=== PATIENT | female | born 1990 | race Caucasian/White ===

== ENCOUNTER 2017-02-04 12:40 | Observation (INO) ==
[2017-02-04 13:17] LABS: Bilirubin,Urine Negative (Negative); Blood,Urine Negative (Negative); Clarity,Urine Clear (Clear); Color,Urine Yellow (Yellow); Glucose,Urine (UA) Normal (Normal); Ketones,Urine Negative (Negative); Leukocyte Esterase,Urine Negative (Negative); Nitrite,Urine Negative (Negative); Protein,Urine Negative (Neg-Trace); Specific Gravity,Urine 1.021 (1.010-1.025); Urobilinogen,Urine Normal (Normal)
[2017-02-04 13:18] LABS: Amphetamine Screen,Urine Negative ng/mL (Cutoff=1000); Barbiturate Screen,Urine Negative ng/mL (Cutoff=200); Benzodiazepines Screen,Urine Positive ng/mL (Cutoff=200); Cannabinoid Screen,Urine Positive ng/mL (Cutoff = 50); Cocaine Screen,Urine Negative ng/mL (Cutoff= 300); Opiate Screen,Urine Negative ng/mL (Cutoff=300); Phencyclidine Screen,Urine Negative ng/mL (Cutoff=25)
[2017-02-04 13:43] LABS: Basophils % 0.2 %; Eosinophils # 0.1 K/mcL (0.0-0.6); Eosinophils % 0.6 %; Hematocrit 43.4 % (35.3-44.9); Immature Granulocytes % 0.2 % (0-4); Lymphocytes # 1.6 K/mcL (0.6-4.6); Lymphocytes % 19.3 %; Mean Corpuscular HGB Conc 34.6 g/dL (31.6-35.5); Mean Corpuscular Hemoglobin 29.8 pg (28.0-33.3); Mean Corpuscular Volume 86.1 fL (83.0-100.0); Mean Platelet Volume 9.6 fL (9.4-12.4); Monocytes # 0.5 K/mcL (0.0-1.3); Monocytes % 6.1 %; Neutrophils # 5.9 K/mcL (1.6-8.9); Platelet Count 164 K/mcL (140-400); Red Blood Count 5.04 M/mcL (3.82-4.97); Red Cell Distribution Width 13.5 % (11.5-14.5); Segmented Neutrophils % 73.6 %
[2017-02-04 13:46] LABS: BUN/Creatinine Ratio 12 (6-26); Blood Urea Nitrogen 10 mg/dL (7-20); Calcium 9.2 mg/dL (8.6-10.8); Carbon Dioxide 22 mEq/L (19-29); Chloride 106 mEq/L (98-109); Glucose 89 mg/dL (70-99); Osmolality,Calculated 285 (280-300); Potassium 4.2 mEq/L (3.5-4.5); Sodium 138 mEq/L (136-145); eGFR For African Americans > 60 (> 60); eGFR For Non-African Americans > 60 (> 60)
[2017-02-04 13:50] LABS: Acetaminophen < 1.0 mcg/mL (10-30); Ethanol < 10 mg/dL (0-10); Salicylate < 5.0 mg/dL (15-30)
--- NOTE | 2017-02-04 14:01 | Emergency Department Note ---
Disposition Clinical Impression: Suicidal ideation Disposition: Admitted As Inpatient Condition: Fair Referrals: NONE,PCP [Primary Care Provider] - Forms: ED Satisfaction Letter Time of Disposition: 17:30 Psych HPI - General Chief Complaint: ED Psychiatric Symptoms Stated Complaint: SI Time Seen by Provider: 02/04/17 14:01 Source: patient, family Nursing Notes Reviewed: Yes Vital Signs Reviewed: Yes - History of Present Illness HPI Narrative: 26-year-old female history of depression presents complaining of suicidal ideation, patient states that she has a history of anxiety and depression, she states that she has had multiple recent stressors in her life, she is having suicidal thoughts but denies suicidal intent or plan, she also has no homicidal thoughts, no auditory or visual hallucination she denies chest pain shortness of breath fever or any acute illness. Pt complaint: suicidal ideation Onset (ago): day(s) Duration: changing over time History of similar episodes: No Improves with: none Worsens with: none Associated Psychiatric Symptoms: depression, suicidal ideation Traumatic symptoms: denies traumatic injury Self harm or harm to others: admits thoughts of self harm - Related Data Home Medications Medication Instructions Recorded Confirmed ALPRAZolam [Xanax 0.5 MG Tablet] 0.5 mg PO TID 02/04/17 02/04/17 Cholecalciferol (Vitamin D3) 50,000 unit PO QWEEK 02/04/17 02/04/17 [Vitamin D] Ferrous Sulfate [Iron] 325 mg PO DAILY 02/04/17 02/04/17 Loratadine [Claritin] 10 mg PO DAILY 02/04/17 02/04/17 Lurasidone [Latuda] 40 mg PO DAILY 02/04/17 02/04/17 Venlafaxine XR (24 HR) [Effexor XR] 37.5 mg PO DAILY 02/04/17 02/04/17 metFORMIN [Glucophage] 500 mg PO TID 02/04/17 02/04/17 Allergies Allergy/AdvReac Type Severity Reaction Status Date / Time No Known Allergies Allergy Verified 02/04/17 18:06 All systems ED: reviewed and negative except as stated. Review of Systems: As Per HPI Constitutional: Denies: fever, chills ENT ED: Denies: ear pain Cardiovascular: Denies: chest pain Respiratory: Denies: cough, dyspnea Gastrointestinal: Denies: abdominal pain Genitourinary: Denies: urgency Musculoskeletal: Denies: back pain, neck pain Integumentary: Denies: rash Psychiatric: Reports: as per HPI, depression, suicidal thoughts. Denies: homicidal thoughts, auditory hallucinations, visual hallucinations Past Medical History - Past Medical History Attestation: Yes The following information was validated with the patient. Source: patient Medical history: Reports: no medical history, other Psychiatric history: Reports: anxiety, depression VP RESEARCH history: Reports: no VP RESEARCH history - Social History Smoking Status: Never smoker Smokeless Tobacco Status: No Alcohol use: Reports: none Drug use: Reports: marijuana Physical Exam Constitutional: NAD, vital signs reviewed and wnl Eyes: PERRLA, sclera anicteric ENT & Mouth: MMM Neck: normal inspection, neck is supple Resp: CTA bilaterally, no resp distress CV: RRR, no m/g/r GI: normal inspection, soft, mild tenderness to palpation diffusely no guarding or rigidity Neuro: A&O3, CNII-XII grossly intact, GONZALEZ Psych: +SI, anxiety Skin: on limited exam, skin intact with no rashes or lesions - General Limitations: no limitations General appearance: alert, in no apparent distress Course Course Narrative: 26-year-old female with anxiety depression and suicidal ideation, the patient was medically cleared after evaluation by one A was determined that she met criteria for suicidal ideation, consult was written, the patient was admitted to the psychiatric unit Ia in stable condition. Vital Signs Temperature 98.1 F 02/04/17 12:49 Pulse Rate 94 02/04/17 12:49 Respiratory Rate 18 02/04/17 12:49 Blood Pressure 143/93 02/04/17 12:49 O2 Sat by Pulse Oximetry 100 02/04/17 12:49 Temperature 98.2 F 02/04/17 13:42 Pulse Rate 81 02/04/17 13:42 Respiratory Rate 20 02/04/17 13:42 Blood Pressure 159/115 02/04/17 13:42 O2 Sat by Pulse Oximetry 98 02/04/17 13:42 Oxygen Delivery Oxygen Delivery Room Air Psych - Differential Diagnosis Likely: suicidal ideation, depression - Lab Data Result diagrams: 02/04/17 13:20 02/04/17 13:20 Lab Results 02/04/17 02/04/17 02/04/17 Range/Units 12:55 12:55 13:20 WBC 8.1 (4.3-11.1) K/mcL RBC 5.04 H (3.82-4.97) M/mcL Hgb 15.0 (11.5-15.4) g/dL Hct 43.4 (35.3-44.9) % MCV 86.1 (83.0-100.0) fL MCH 29.8 (28.0-33.3) pg MCHC 34.6 (31.6-35.5) g/dL RDW 13.5 (11.5-14.5) % Plt Count 164 (140-400) K/mcL MPV 9.6 (9.4-12.4) fL Immature Gran % 0.2 (0-4) % Seg Neutrophils % 73.6 % Lymphocytes % 19.3 % Monocytes % 6.1 % Eosinophils % 0.6 % Basophils % 0.2 % Neutrophils # 5.9 (1.6-8.9) K/mcL Lymphocytes # 1.6 (0.6-4.6) K/mcL Monocytes # 0.5 (0.0-1.3) K/mcL Eosinophils # 0.1 (0.0-0.6) K/mcL Basophils # 0.0 (0.0-0.2) K/mcL Sodium (136-145) mEq/L Potassium (3.5-4.5) mEq/L Chloride (98-109) mEq/L Carbon Dioxide (19-29) mEq/L BUN (7-20) mg/dL Creatinine (0.57-1.11) mg/dL Est GFR ( Amer) (> 60) Est GFR (Non-Af Amer) (> 60) BUN/Creatinine Ratio (6-26) Glucose (70-99) mg/dL Calculated Osmolality (280-300) Calcium (8.6-10.8) mg/dL Urine Color Yellow (Yellow) Urine Clarity Clear (Clear) Urine pH 6.0 (5.0-8.0) pH Units Ur Specific [place] 1.021 (1.010-1.025) Urine Protein Negative (Neg-Trace) mg/dL Urine Glucose (UA) Normal (Normal) mg/dL Urine Ketones Negative (Negative) mg/dL Urine Blood Negative (Negative) Urine Nitrite Negative (Negative) Urine Bilirubin Negative (Negative) Urine Urobilinogen Normal (Normal) mg/dL Ur Leukocyte Esterase Negative (Negative) Ur Culture Indicated? (NO) Urine Test (Negative) Salicylates (15-30) mg/dL Urine Opiates Screen Negative (Owpyao=454) ng/mL Acetaminophen (10-30) mcg/mL Ur Barbiturates Screen Negative (Rjbhef=873) ng/mL Ur Phencyclidine Scrn Negative (Cutoff=25) ng/mL Ur Amphetamines Screen Negative (Ifjuqw=1066) ng/mL U Benzodiazepines Scrn Positive H (Lavpet=986) ng/mL Urine Cocaine Screen Negative (Cutoff= 300) ng/mL U Marijuana (THC) Screen Positive H (Cutoff = 50) ng/mL Ethyl Alcohol (0-10) mg/dL 02/04/17 02/04/17 02/04/17 Range/Units 13:20 14:30 14:30 WBC (4.3-11.1) K/mcL RBC (3.82-4.97) M/mcL Hgb (11.5-15.4) g/dL Hct (35.3-44.9) % MCV (83.0-100.0) fL MCH (28.0-33.3) pg MCHC (31.6-35.5) g/dL RDW (11.5-14.5) % Plt Count (140-400) K/mcL MPV (9.4-12.4) fL Immature Gran % (0-4) % Seg Neutrophils % % Lymphocytes % % Monocytes % % Eosinophils % % Basophils % % Neutrophils # (1.6-8.9) K/mcL Lymphocytes # (0.6-4.6) K/mcL Monocytes # (0.0-1.3) K/mcL Eosinophils # (0.0-0.6) K/mcL Basophils # (0.0-0.2) K/mcL Sodium 138 (136-145) mEq/L Potassium 4.2 (3.5-4.5) mEq/L Chloride 106 (98-109) mEq/L Carbon Dioxide 22 (19-29) mEq/L BUN 10 (7-20) mg/dL Creatinine 0.84 (0.57-1.11) mg/dL Est GFR ( Amer) > 60 (> 60) Est GFR (Non-Af Amer) > 60 (> 60) BUN/Creatinine Ratio 12 (6-26) Glucose 89 (70-99) mg/dL Calculated Osmolality 285 (280-300) Calcium 9.2 (8.6-10.8) mg/dL Urine Color Yellow (Yellow) Urine Clarity Clear (Clear) Urine pH 6.0 (5.0-8.0) pH Units Ur Specific [place] 1.019 (1.010-1.025) Urine Protein Negative (Neg-Trace) mg/dL Urine Glucose (UA) Normal (Normal) mg/dL Urine Ketones Negative (Negative) mg/dL Urine Blood Negative (Negative) Urine Nitrite Negative (Negative) Urine Bilirubin Negative (Negative) Urine Urobilinogen Normal (Normal) mg/dL Ur Leukocyte Esterase Negative (Negative) Ur Culture Indicated? NO (NO) Urine Test Negative (Negative) Salicylates < 5.0 L (15-30) mg/dL Urine Opiates Screen (Otsvqc=617) ng/mL Acetaminophen < 1.0 L (10-30) mcg/mL Ur Barbiturates Screen (Qjghjz=302) ng/mL Ur Phencyclidine Scrn (Cutoff=25) ng/mL Ur Amphetamines Screen (Yznnur=6815) ng/mL U Benzodiazepines Scrn (Ojgmgc=197) ng/mL Urine Cocaine Screen (Cutoff= 300) ng/mL U Marijuana (THC) Screen (Cutoff = 50) ng/mL Ethyl Alcohol < 10 (0-10) mg/dL Psychiatric Medical Clearance - Medical Clearance Checklist Medical History: Abdominal pain (Inactive) Nausea & vomiting (Inactive) No Social History Section defined Current Vitals: Last Vital Signs Temp 98.2 F 02/04/17 13:42 Pulse 81 02/04/17 13:42 Resp 20 02/04/17 13:42 BP 159/115 02/04/17 13:42 Pulse Ox 98 02/04/17 13:42 Psychiatric Lab Panel: Drug Levels and Toxicity 02/04/17 02/04/17 12:55 13:20 Urine Opiates Screen Negative Acetaminophen < 1.0 L Ur Barbiturates Screen Negative Ur Phencyclidine Scrn Negative Ur Amphetamines Screen Negative U Benzodiazepines Scrn Positive H Urine Cocaine Screen Negative U Marijuana (THC) Screen Positive H Ethyl Alcohol < 10 Abnormal Labs: Abnormal lab results RBC 5.04 M/mcL (3.82-4.97) H 02/04/17 13:20 Salicylates < 5.0 mg/dL (15-30) L 02/04/17 13:20 Acetaminophen < 1.0 mcg/mL (10-30) L 02/04/17 13:20 U Benzodiazepines Scrn Positive ng/mL (Zxahlc=099) H 02/04/17 12:55 U Marijuana (THC) Screen Positive ng/mL (Cutoff = 50) H 02/04/17 12:55 Statement of Medical Clearance: I have evaluated the patient, reviewed diagnostic information, and certify that the patient's medical condition is sufficiently stable that transfer to the psychiatric unit does not pose a significant risk of deterioration.
--- NOTE | 2017-02-04 14:19 | Emergency Department Note ---
START Narrative - START START: I examined this patient and my medical decision-making was reviewed with the Resident Physician. I agree with the documented findings, disposition and treatment plan as described except to the extent set forth below. ED attending note: Patient seen with emergency medicine resident Dr. Bazan. We independently evaluated the patient and had [id number] contact with the patient. Please see a copy of his note for details of the history and physical, evaluation, management and disposition of this emergency Department patient. Briefly: A 26-year-old female history of bipolar disorder and depression presents with suicidal ideation but no discrete plan. Patient presented with the mother. Patient is undergoing psychiatric consultation and counseling on an outpatient basis. Patient has had no prior inpatient psychiatric admissions. Patient's physical examination was otherwise benign. Patient's screening labs including urine tox screen essentially normal bleeding for urine . Mental health be consulted for further treatment management and disposition.
[2017-02-04 14:46] LABS: Bilirubin,Urine Negative (Negative); Blood,Urine Negative (Negative); Clarity,Urine Clear (Clear); Color,Urine Yellow (Yellow); Glucose,Urine (UA) Normal (Normal); Ketones,Urine Negative (Negative); Leukocyte Esterase,Urine Negative (Negative); Nitrite,Urine Negative (Negative); Protein,Urine Negative (Neg-Trace); Specific Gravity,Urine 1.019 (1.010-1.025); Urobilinogen,Urine Normal (Normal)
[2017-02-04] MEDS ORDERED: Haloperidol Lactate 5 MG/ML VIAL IM PRN (18:20)
[2017-02-04] MEDS ORDERED: *HR* LORazepam 2 MG/ML VIAL IM PRN (18:20)
[2017-02-04] MEDS ORDERED: *HR* LORazepam 1 MG TABLET PO PRN (18:20)
[2017-02-04] MEDS ORDERED: MOM Conc 10 ML UD.LIQ PO PRN (18:20)
[2017-02-04] MEDS ORDERED: Mag Hydrox/Al Hydrox/Simeth 30 ML UDC PO PRN (18:20)
[2017-02-04] MEDS: hydrOXYzine pamoate 25 MG CAPSULE PO PRN (20:11)
[2017-02-04] MEDS: *HR* Metformin 500 MG TABLET PO SCH (20:11)
[2017-02-04] MEDS: traZODone 50 MG TABLET PO PRN (20:12)
[2017-02-04] MEDS: Acetaminophen 325 MG TABLET PO PRN (20:19)
[2017-02-05] MEDS ORDERED: Venlafaxine XR (24 HR) 37.5 MG CAP.ER.24H PO SCH (09:00)
[2017-02-05] MEDS: Cholecalciferol (D-3) 1,000 UNIT TABLET PO SCH (09:18)
[2017-02-05] MEDS: *HR* Metformin 500 MG TABLET PO SCH ×3 (09:19→21:44)
[2017-02-05] MEDS ORDERED: Venlafaxine XR (24 HR) 75 MG CAP.ER.24H PO SCH (10:12)
--- NOTE | 2017-02-05 10:25 | Discharge Summary ---
Date of Encounter: 02/06/17 Time of Encounter: 10:19 History of Present Illness Chief complaint: Depression and suicidal ideation Admitted From: Emergency Dept History of Present Illness: Ms. Walton is a 26 year old female admitted from the emergency department on observation status to evaluate increasing depression, anxiety and suicidal ideation. Patient reports having hypersomnia, frequent anxiety and increasing depression. Patient medication changes including increasing Latuda to 60 mg daily, adding Effexor 37.5 and changing Klonopin to alprazolam. Patient did not tolerate the medication changes and would not have outpatient appointments soon. She had no previous hospitalization, she reported having mood swings, she works and goes to school and feels stressed out. UDS was positive for THC and benzodiazepine. Patient denied any past suicide attempts and has been receiving mental health's treatment for the last 2 years. Past Med Surg Social Fam HX - Past Medical History Medical history: no medical history, other - Past Psychiatric History Psychiatric history: Reports: anxiety, depression. Denies: prior suicide attempt, previous psychiatric hospitalization - Social History Smoking Status: Never smoker Smokeless Tobacco Status: No Alcohol use: none Drug use: marijuana - Family History Mother Adopted: [place]: Eneida Age: 48 Family Member Ethnicity: Non- Living Status: Still Living Hx Family Cardiac Disorders: No Hx Family Respiratory Disorders: No Hx Family Cancer: No Hx Family GI Disorders: Yes (Diverticulitis) Hx Family Genitourinary Disorders: No Hx Family Endocrine Disorder: No Hx Family Musculoskeletal Disorders: No Hx Family Neuromuscular Disorders: No Hx Family Neurologic Disorders: No Hx Family HEENT Disorders: No Hx Family Autoimmune Disorders: Yes (oldest daughter) Hx Family Reproductive Disorders: Yes (POCS and endometriosis) Hx Family Psychosocial Disorders: No Hx Family Medical Disorders: No Medications - Discharge Medications Prescriptions: Gabapentin [Neurontin] 100 mg PO BID #60 capsule Propranolol [Inderal] 20 mg PO BID PRN #60 tablet PRN Reason: Anxiety Venlafaxine XR (24 HR) [Effexor XR] 75 mg PO DAILY #30 cap.er.24h ALPRAZolam [Xanax 0.5 MG Tablet] 0.5 mg PO TID 02/04/17 [History] Cholecalciferol (Vitamin D3) [Vitamin D3] 50,000 unit PO QWEEK 02/04/17 [History ] Ferrous Sulfate [Iron] 325 mg PO DAILY 02/04/17 [History] Loratadine [Claritin] 10 mg PO DAILY 02/04/17 [History] metFORMIN [Glucophage] 500 mg PO TID 02/04/17 [History] Gabapentin [Neurontin] 100 mg PO BID #60 capsule 02/06/17 [Rx] Propranolol [Inderal] 20 mg PO BID PRN #60 tablet 02/06/17 [Rx] Venlafaxine XR (24 HR) [Effexor XR] 75 mg PO DAILY #30 cap.er.24h 02/06/17 [Rx] 3 Allergy/AdvReac Type Severity Reaction Status Date / Time No Known Allergies Allergy Verified 02/04/17 18:06 Review of Systems Psychiatric: Reports: depression, anxiety, abnormal sleep pattern, suicidal ideation, irritability, mood swings Mental Status Exam - Mental Status Exam Patient orientation: Yes Person, Yes Time, Yes Place Level of alertness: Alert Patient appearance: Appropriate, Well Groomed, Obese Behavior: calm, cooperative, anxious Psychomotor activity: Normal Eye contact: Maintains Eye Contact Mood description: Euthymic/stable, Anxious Affect description: congruent with mood, full range Speech pattern: Normal rate, Normal rhythm, Normal tone Speech Volume: Normal Thought process: Linear, Goal Oriented Thought Content: No Suicidal ideation, No Homicidal ideation, No Overt delusions Perceptual Disturbances: No Auditory hallucinations, No Visual hallucinations Judgment: Good Insight: Partial Results - Vital Signs Vital signs: Temp Pulse Resp BP Pulse Ox 98 F 67 16 124/87 97 02/05/17 08:11 02/05/17 08:11 02/05/17 08:11 02/05/17 08:11 02/04/17 17:57 - Labs Labs: Laboratory Last Values WBC 8.1 K/mcL (4.3-11.1) 02/04/17 13:20 RBC 5.04 M/mcL (3.82-4.97) H 02/04/17 13:20 Hgb 15.0 g/dL (11.5-15.4) 02/04/17 13:20 Hct 43.4 % (35.3-44.9) 02/04/17 13:20 MCV 86.1 fL (83.0-100.0) 02/04/17 13:20 MCH 29.8 pg (28.0-33.3) 02/04/17 13:20 MCHC 34.6 g/dL (31.6-35.5) 02/04/17 13:20 RDW 13.5 % (11.5-14.5) 02/04/17 13:20 Plt Count 164 K/mcL (140-400) 02/04/17 13:20 MPV 9.6 fL (9.4-12.4) 02/04/17 13:20 Immature Gran % 0.2 % (0-4) 02/04/17 13:20 Seg Neutrophils % 73.6 % 02/04/17 13:20 Lymphocytes % 19.3 % 02/04/17 13:20 Monocytes % 6.1 % 02/04/17 13:20 Eosinophils % 0.6 % 02/04/17 13:20 Basophils % 0.2 % 02/04/17 13:20 Neutrophils # 5.9 K/mcL (1.6-8.9) 02/04/17 13:20 Lymphocytes # 1.6 K/mcL (0.6-4.6) 02/04/17 13:20 Monocytes # 0.5 K/mcL (0.0-1.3) 02/04/17 13:20 Eosinophils # 0.1 K/mcL (0.0-0.6) 02/04/17 13:20 Basophils # 0.0 K/mcL (0.0-0.2) 02/04/17 13:20 Sodium 138 mEq/L (136-145) 02/04/17 13:20 Potassium 4.2 mEq/L (3.5-4.5) 02/04/17 13:20 Chloride 106 mEq/L (98-109) 02/04/17 13:20 Carbon Dioxide 22 mEq/L (19-29) 02/04/17 13:20 BUN 10 mg/dL (7-20) 02/04/17 13:20 Creatinine 0.84 mg/dL (0.57-1.11) 02/04/17 13:20 Est GFR ( Amer) > 60 (> 60) 02/04/17 13:20 Est GFR (Non-Af Amer) > 60 (> 60) 02/04/17 13:20 BUN/Creatinine Ratio 12 (6-26) 02/04/17 13:20 Glucose 89 mg/dL (70-99) 02/04/17 13:20 Calculated Osmolality 285 (280-300) 02/04/17 13:20 Calcium 9.2 mg/dL (8.6-10.8) 02/04/17 13:20 Urine Color Yellow (Yellow) 02/04/17 14:30 Urine Clarity Clear (Clear) 02/04/17 14:30 Urine pH 6.0 pH Units (5.0-8.0) 02/04/17 14:30 Ur Specific [place] 1.019 (1.010-1.025) 02/04/17 14:30 Urine Protein Negative mg/dL (Neg-Trace) 02/04/17 14:30 Urine Glucose (UA) Normal mg/dL (Normal) 02/04/17 14:30 Urine Ketones Negative mg/dL (Negative) 02/04/17 14:30 Urine Blood Negative (Negative) 02/04/17 14:30 Urine Nitrite Negative (Negative) 02/04/17 14:30 Urine Bilirubin Negative (Negative) 02/04/17 14:30 Urine Urobilinogen Normal mg/dL (Normal) 02/04/17 14:30 Ur Leukocyte Esterase Negative (Negative) 02/04/17 14:30 Ur Culture Indicated? NO (NO) 02/04/17 14:30 Urine Test Negative (Negative) 02/04/17 14:30 Salicylates < 5.0 mg/dL (15-30) L 02/04/17 13:20 Urine Opiates Screen Negative ng/mL (Umcffu=968) 02/04/17 12:55 Acetaminophen < 1.0 mcg/mL (10-30) L 02/04/17 13:20 Ur Barbiturates Screen Negative ng/mL (Fyianb=407) 02/04/17 12:55 Ur Phencyclidine Scrn Negative ng/mL (Cutoff=25) 02/04/17 12:55 Ur Amphetamines Screen Negative ng/mL (Dzudtz=3401) 02/04/17 12:55 U Benzodiazepines Scrn Positive ng/mL (Cnifuu=665) H 02/04/17 12:55 Urine Cocaine Screen Negative ng/mL (Cutoff= 300) 02/04/17 12:55 U Marijuana (THC) Screen Positive ng/mL (Cutoff = 50) H 02/04/17 12:55 Ethyl Alcohol < 10 mg/dL (0-10) 02/04/17 13:20 Diagnosis - Discharge Diagnosis (1) Mood disorder of depressed type Status: Acute Comments: 1. Discontinue Lithobid 2. Increase Effexor XR to 75 mg daily 3. Gabapentin 100 mg twice a day 4. Propranolol 20 mg twice a day when necessary for anxiety. Medication changes, benefits and side effects were discussed with patient, she is agreeable to start and will monitor. Assessment and Plan - Patient/Caregiver Discharge Instructions Activity: resume usual activities as tolerated Diet: regular diet - Follow up Plan Follow up with: Isabel Smith [facility] [Outside] - 02/06/17 2:45 pm (The above appointment is with Kaelyn Rios for outpatient psychiatric assessment and medication management services. You will also see your counselor, Parul, after this appointment also.) Functional capacity at discharge: independent ambulation Overall status at discharge: Stable Disposition: Home, Self-Care Provider Date of admission: 02/04/17 17:33 Primary care physician: PCP NONE Consults: 02/04/17 19:02 Consult to Pastoral Services [CONS] Routine Comment: Discharging clinician: Eber Begum Hospital Course Hospital course: Ms. Walton is a 26 year old female admitted from the emergency department for depression and suicidal ideation and medication changes. Patient has history of mood disorder and her medication will changed recently and was complaining of increasing depression and suicidal ideation and hypersomnia. On the units patient medication were adjusted lurasidone was discontinued, increase Effexor XR 75 mg daily, added gabapentin 100 mg twice a day and propranolol when necessary for anxiety. Patient tolerated medication changes she reported less anxiety and Sleep, she was anxious to be discharged from for her final exams and job schedule. On discharge patient was medically stable denied any suicidal thoughts, denied any side effects of medication. She was future oriented. Her discharge plans and follow-up were completed by social work. She is discharged and stable condition. - Time Spent with Patient Total time spent providing and/or coordinating discharge services: Greater than 30 minutes Procedures - Procedures Procedures: Medication Management, Crisis Stabilization, Supportive Therapy, Group Therapy, Psychoeducational Therapy Quality - Multiple Antipsychotics Patient discharged on 2 or more antipsychotic medications: No
[2017-02-05] MEDS: Gabapentin 100 MG CAPSULE PO SCH ×2 (11:13→21:44)
[2017-02-05] MEDS: Acetaminophen 325 MG TABLET PO PRN (21:44)
[2017-02-05] MEDS: traZODone 50 MG TABLET PO PRN (21:45)
[2017-02-05] MEDS: hydrOXYzine pamoate 25 MG CAPSULE PO PRN (21:45)
[2017-02-06] MEDS: *HR* Metformin 500 MG TABLET PO SCH (08:46)
[2017-02-06] MEDS: Gabapentin 100 MG CAPSULE PO SCH (08:46)
[2017-02-06] MEDS: Cholecalciferol (D-3) 1,000 UNIT TABLET PO SCH (08:47)
[2017-02-06 09:00] VITALS: BP 132/83
[2017-02-06] MEDS ORDERED: FLUARIX QUAD 2017-18 36MOS UP/PF 0.5 ML SYRINGE IM ONE (09:41)
== END 2017-02-06 10:47 | disposition home or self-care (01) ==
LOC: EMEROO 12:40 → 1ANU 12:40
PROVIDERS: ADMIT Psychiatry & Neurology Psychiatry; ATTEND Psychiatry & Neurology Psychiatry

== ENCOUNTER 2019-06-09 22:04 | Observation (INO) ==
[2019-06-09 22:28] LABS: Bilirubin,Urine Negative (Negative); Blood,Urine Negative (Negative); Clarity,Urine Clear (Clear); Color,Urine Yellow (Yellow); Glucose,Urine (UA) Normal (Normal); Ketones,Urine Negative (Negative); Leukocyte Esterase,Urine Negative (Negative); Nitrite,Urine Negative (Negative); Protein,Urine Negative (Neg-Trace); Specific Gravity,Urine 1.016 (1.010-1.025); Urobilinogen,Urine Normal (Normal)
[2019-06-09] MEDS ORDERED: Ringers Solution, Lactated 1,000 ML IVC ONE (22:46)
[2019-06-09] MEDS ORDERED: Ondansetron 4 MG/2 ML VIAL IVP ONE (22:58)
[2019-06-09] MEDS ORDERED: D5% in Lactated Ringers 1,000 ML IVC SCH (23:00)
[2019-06-09 23:10] LABS: Basophils % 0.1 %; Eosinophils % 0.5 %; Hematocrit 34.9 % (35.3-44.9); Hemoglobin 11.9 g/dL (11.5-15.4); Immature Granulocytes % 0.2 % (0-4); Lymphocytes # 1.6 K/mcL (0.6-4.6); Lymphocytes % 18.6 %; Mean Corpuscular HGB Conc 34.1 g/dL (31.6-35.5); Mean Corpuscular Hemoglobin 30.4 pg (28.0-33.3); Mean Corpuscular Volume 89.3 fL (83.0-100.0); Mean Platelet Volume 8.9 fL (9.4-12.4); Monocytes # 0.6 K/mcL (0.0-1.3); Monocytes % 6.7 %; Neutrophils # 6.4 K/mcL (1.6-8.9); Platelet Count 175 K/mcL (140-400); Red Blood Count 3.91 M/mcL (3.82-4.97); Red Cell Distribution Width 12.6 % (11.5-14.5); Segmented Neutrophils % 73.9 %; White Blood Count 8.6 K/mcL (4.3-11.1)
[2019-06-09] MEDS ORDERED: Acetaminophen/Butalbital/CaffeineTABLET PO PRN (23:13)
[2019-06-09 23:30] LABS: Potassium 3.9 mEq/L (3.5-5.1)
[2019-06-09 23:57] LABS: Candida DNA Not Detected (Not Detect); Gardnerella DNA Not Detected (Not Detect); Trichomonas DNA Not Detected (Not Detect)
== END 2019-06-10 00:42 | disposition hospice, home (50) ==
LOC: 1NENULAB
PROVIDERS: ADMIT Advanced Practice Midwife; ATTEND Advanced Practice Midwife

== ENCOUNTER → 2019-07-24 16:50 | Observation (INO) | END | disposition home or self-care (01) | LOC: 1NENULAB | PROVIDERS: ADMIT Advanced Practice Midwife; ATTEND Advanced Practice Midwife ==

== ENCOUNTER 2019-09-23 12:37 | Observation (INO) | END 2019-09-23 14:10 | disposition home or self-care (01) | LOC: 1NENULAB | PROVIDERS: ADMIT Obstetrics & Gynecology; ATTEND Obstetrics & Gynecology ==

== ENCOUNTER 2019-09-26 18:06 | Inpatient (IN) ==
[2019-09-26 20:19] LABS: Hemoglobin 11.3 g/dL (11.5-15.4)
[2019-09-26 20:21] LABS: Basophils % 0.2 %; Eosinophils # 0.1 K/mcL (0.0-0.6); Eosinophils % 1.1 %; Hematocrit 34.9 % (35.3-44.9); Immature Granulocytes % 0.5 % (0-4); Immature Platelets 1.7 % (1.1-6.1); Lymphocytes # 1.6 K/mcL (0.6-4.6); Lymphocytes % 27.9 %; Mean Corpuscular HGB Conc 32.4 g/dL (31.6-35.5); Mean Corpuscular Hemoglobin 28.3 pg (28.0-33.3); Mean Corpuscular Volume 87.3 fL (83.0-100.0); Monocytes # 0.4 K/mcL (0.0-1.3); Monocytes % 6.4 %; Neutrophils # 3.6 K/mcL (1.6-8.9); Platelet Count 121 K/mcL (140-400); Red Cell Distribution Width 13.8 % (11.5-14.5); Segmented Neutrophils % 63.9 %; White Blood Count 5.7 K/mcL (4.3-11.1)
[2019-09-26 20:26] LABS: INR 1.2; Prothrombin Time 13.3 Seconds (9.4-12.1)
[2019-09-26 20:38] LABS: Alanine Aminotransferase 19 Units/L (7-52); Albumin 3.4 g/dL (3.5-5.7); Albumin/Globulin Ratio 1.3 (1.1-2.2); Alkaline Phosphatase 87 Units/L (34-104); Aspartate Amino Transferase 23 Units/L (13-39); BUN/Creatinine Ratio 11 (6-26); Bilirubin,Total 0.3 mg/dL (0.3-1.0); Blood Urea Nitrogen 7 mg/dL (6-20); Calcium 8.1 mg/dL (8.6-10.3); Carbon Dioxide 18 mEq/L (23-29); Chloride 105 mEq/L (98-107); Globulin 2.7 g/dL (2.4-3.5); Glucose 85 mg/dL (70-105); Osmolality,Calculated 279 (280-300); Potassium 3.7 mEq/L (3.5-5.1); Sodium 136 mEq/L (136-145); Total Protein 6.1 g/dL (6.4-8.9); eGFR For African Americans > 60 (> 60); eGFR For Non-African Americans > 60 (> 60)
[2019-09-26] MEDS: *HR* Promethazine 25 MG/ML VIAL IVP PRN (21:09)
[2019-09-26] MEDS: Famotidine 20 MG TABLET PO SCH (21:10)
[2019-09-26] MEDS: Acetaminophen 325 MG TABLET PO PRN (21:10)
[2019-09-26] MEDS: Ringers Solution, Lactated 1,000 ML IVC ONE (21:40)
[2019-09-26] MEDS: Ondansetron 4 MG/2 ML VIAL IVP PRN (23:52)
[2019-09-27] MEDS ORDERED: Prochlorperazine 10 MG/2 ML VIAL IVP PRN (01:16)
[2019-09-27] MEDS ORDERED: Ringers Solution, Lactated 1,000 ML ONE (01:49)
[2019-09-27] MEDS: Ringers Solution, Lactated 1,000 ML IVC ONE (01:51)
[2019-09-27] MEDS: Ondansetron 4 MG/2 ML VIAL IVP PRN (01:51)
[2019-09-27] MEDS ORDERED: Ondansetron 4 MG/2 ML VIAL IVP ONE (01:52)
[2019-09-27 02:05] LABS: Basophils % 0.1 %; Eosinophils % 0.6 %; Hemoglobin 11.1 g/dL (11.5-15.4); Monocytes % 5.2 %
[2019-09-27 02:07] LABS: Eosinophils # 0.1 K/mcL (0.0-0.6); Hematocrit 33.7 % (35.3-44.9); Immature Granulocytes % 0.4 % (0-4); Immature Platelets 1.9 % (1.1-6.1); Lymphocytes # 1.3 K/mcL (0.6-4.6); Lymphocytes % 16.4 %; Mean Corpuscular HGB Conc 32.9 g/dL (31.6-35.5); Mean Corpuscular Hemoglobin 28.5 pg (28.0-33.3); Mean Corpuscular Volume 86.4 fL (83.0-100.0); Mean Platelet Volume 9.2 fL (9.4-12.4); Monocytes # 0.4 K/mcL (0.0-1.3); Platelet Count 111 K/mcL (140-400); Red Cell Distribution Width 13.8 % (11.5-14.5); Segmented Neutrophils % 77.3 %; White Blood Count 8.1 K/mcL (4.3-11.1)
[2019-09-27 02:14] LABS: Neutrophils # 6.3 K/mcL (1.6-8.9)
[2019-09-27 02:22] LABS: BUN/Creatinine Ratio 13 (6-26); Blood Urea Nitrogen 8 mg/dL (6-20); Calcium 8.1 mg/dL (8.6-10.3); Carbon Dioxide 19 mEq/L (23-29); Chloride 105 mEq/L (98-107); Glucose 102 mg/dL (70-105); Osmolality,Calculated 283 (280-300); Potassium 3.4 mEq/L (3.5-5.1); Sodium 137 mEq/L (136-145); eGFR For African Americans > 60 (> 60); eGFR For Non-African Americans > 60 (> 60)
[2019-09-27] MEDS: Acetaminophen 325 MG TABLET PO PRN ×3 (02:26→18:21)
[2019-09-27] MEDS: Ringers Solution, Lactated 1,000 ML IVC SCH ×3 (02:33→20:03)
[2019-09-27] MEDS: *HR* Promethazine 25 MG/ML VIAL IVP PRN ×3 (03:16→19:53)
[2019-09-27] MEDS ORDERED: Potassium Chloride 40 MEQ, Lidocaine 1% 2 ML in 0.9 % Sodium Chloride 500 ML IVPB ONE (07:18)
[2019-09-27] MEDS: Famotidine 20 MG TABLET PO SCH ×2 (07:58→19:53)
[2019-09-27] MEDS: valACYclovir 500 MG TABLET PO SCH (08:00)
[2019-09-27] MEDS ORDERED: Benzocaine/Menthol 56 GM AEROSOL SPRAY TP PRN (08:45)
[2019-09-27] MEDS: Aspirin 81 MG TAB.CHEW PO SCH (09:38)
[2019-09-27] MEDS ORDERED: *HR* Heparin 5,000 UNIT/ML VIAL SQ SCH (15:45)
[2019-09-27] MEDS: *HR* Heparin 5,000 UNIT/ML VIAL SQ SCH (17:13)
[2019-09-28] MEDS: Ringers Solution, Lactated 1,000 ML IVC SCH ×2 (00:52→10:02)
[2019-09-28] MEDS: *HR* Promethazine 25 MG/ML VIAL IVP PRN ×2 (02:02→07:54)
[2019-09-28] MEDS: *HR* Heparin 5,000 UNIT/ML VIAL SQ SCH ×2 (05:14→17:05)
[2019-09-28 05:22] LABS: Basophils % 0.2 %; Immature Granulocytes % 0.4 % (0-4)
[2019-09-28 05:24] LABS: Eosinophils # 0.1 K/mcL (0.0-0.6); Eosinophils % 1.7 %; Hematocrit 29.1 % (35.3-44.9); Hemoglobin 9.6 g/dL (11.5-15.4); Immature Platelets 3.1 % (1.1-6.1); Lymphocytes # 1.5 K/mcL (0.6-4.6); Mean Corpuscular Hemoglobin 29.4 pg (28.0-33.3); Mean Corpuscular Volume 89.3 fL (83.0-100.0); Monocytes # 0.3 K/mcL (0.0-1.3); Monocytes % 5.8 %; Neutrophils # 2.9 K/mcL (1.6-8.9); Platelet Count 96 K/mcL (140-400); Red Blood Count 3.26 M/mcL (3.82-4.97); Red Cell Distribution Width 13.9 % (11.5-14.5); Segmented Neutrophils % 60.9 %; White Blood Count 4.7 K/mcL (4.3-11.1)
[2019-09-28 05:41] LABS: BUN/Creatinine Ratio 6 (6-26); Blood Urea Nitrogen 3 mg/dL (6-20); Calcium 7.3 mg/dL (8.6-10.3); Carbon Dioxide 22 mEq/L (23-29); Chloride 108 mEq/L (98-107); Glucose 76 mg/dL (70-105); Osmolality,Calculated 283 (280-300); Potassium 3.4 mEq/L (3.5-5.1); Sodium 139 mEq/L (136-145); eGFR For African Americans > 60 (> 60); eGFR For Non-African Americans > 60 (> 60)
[2019-09-28] MEDS: Acetaminophen 325 MG TABLET PO PRN ×3 (07:53→20:27)
[2019-09-28] MEDS: valACYclovir 500 MG TABLET PO SCH (07:53)
[2019-09-28] MEDS: Famotidine 20 MG TABLET PO SCH ×2 (07:53→20:11)
[2019-09-28] MEDS: Aspirin 81 MG TAB.CHEW PO SCH (07:53)
[2019-09-28] MEDS ORDERED: Potassium Chloride 20 MEQ, Lidocaine 1% 2 ML in 0.9 % Sodium Chloride 250 ML IVPB ONE (08:06)
[2019-09-28] MEDS: D5% in Lactated Ringers 1,000 ML IVC SCH ×2 (10:55→20:00)
[2019-09-28] MEDS: GuaiFENesin Liq 200 MG/10 ML UDC PO SCH ×3 (10:55→17:04)
[2019-09-29] MEDS: GuaiFENesin Liq 200 MG/10 ML UDC PO SCH ×5 (00:05→22:52)
[2019-09-29] MEDS: Acetaminophen 325 MG TABLET PO PRN ×3 (02:32→14:11)
[2019-09-29] MEDS: D5% in Lactated Ringers 1,000 ML IVC SCH ×3 (02:33→22:52)
[2019-09-29 05:12] LABS: Basophils % 0.2 %; Eosinophils # 0.1 K/mcL (0.0-0.6); Eosinophils % 2.4 %; Hematocrit 29.9 % (35.3-44.9); Hemoglobin 9.6 g/dL (11.5-15.4); Immature Granulocytes % 0.4 % (0-4); Immature Platelets 4.1 % (1.1-6.1); Lymphocytes # 1.4 K/mcL (0.6-4.6); Mean Corpuscular HGB Conc 32.1 g/dL (31.6-35.5); Mean Corpuscular Hemoglobin 28.6 pg (28.0-33.3); Mean Platelet Volume 9.5 fL (9.4-12.4); Monocytes # 0.3 K/mcL (0.0-1.3); Monocytes % 5.8 %; Neutrophils # 2.8 K/mcL (1.6-8.9); Platelet Count 74 K/mcL (140-400); Red Blood Count 3.36 M/mcL (3.82-4.97); Red Cell Distribution Width 14.1 % (11.5-14.5); Segmented Neutrophils % 61.2 %; White Blood Count 4.6 K/mcL (4.3-11.1)
[2019-09-29] MEDS: *HR* Heparin 5,000 UNIT/ML VIAL SQ SCH (05:12)
[2019-09-29 05:14] LABS: Prothrombin Time 11.9 Seconds (9.4-12.1)
[2019-09-29 05:29] LABS: BUN/Creatinine Ratio 7 (6-26); Blood Urea Nitrogen 3 mg/dL (6-20); Calcium 7.6 mg/dL (8.6-10.3); Carbon Dioxide 24 mEq/L (23-29); Chloride 109 mEq/L (98-107); Glucose 97 mg/dL (70-105); Osmolality,Calculated 282 (280-300); Potassium 3.4 mEq/L (3.5-5.1); Sodium 138 mEq/L (136-145); eGFR For African Americans > 60 (> 60); eGFR For Non-African Americans > 60 (> 60)
[2019-09-29] MEDS: valACYclovir 500 MG TABLET PO SCH (08:01)
[2019-09-29] MEDS: Aspirin 81 MG TAB.CHEW PO SCH (08:01)
[2019-09-29] MEDS: Famotidine 20 MG TABLET PO SCH ×2 (08:01→19:59)
[2019-09-29] MEDS ORDERED: Potassium Chloride 20 MEQ, Lidocaine 1% 2 ML in 0.9 % Sodium Chloride 250 ML IVPB ONE (09:14)
[2019-09-29] MEDS ORDERED: SUMAtriptan succinate 50 MG TABLET PO ONE (16:08)
[2019-09-29] MEDS ORDERED: SUMAtriptan succinate 50 MG TABLET PO PRN (18:30)
[2019-09-30 05:32] LABS: Red Cell Distribution Width 14.4 % (11.5-14.5)
[2019-09-30 05:34] LABS: Basophils % 0.4 %; Eosinophils # 0.2 K/mcL (0.0-0.6); Eosinophils % 3.9 %; Hematocrit 33.5 % (35.3-44.9); Hemoglobin 10.1 g/dL (11.5-15.4); Immature Granulocytes % 0.6 % (0-4); Immature Platelets 4.8 % (1.1-6.1); Lymphocytes # 1.3 K/mcL (0.6-4.6); Lymphocytes % 24.8 %; Mean Corpuscular HGB Conc 30.1 g/dL (31.6-35.5); Mean Corpuscular Hemoglobin 28.6 pg (28.0-33.3); Mean Corpuscular Volume 94.9 fL (83.0-100.0); Mean Platelet Volume 10.2 fL (9.4-12.4); Monocytes # 0.3 K/mcL (0.0-1.3); Monocytes % 6.7 %; Neutrophils # 3.2 K/mcL (1.6-8.9); Red Blood Count 3.53 M/mcL (3.82-4.97); Segmented Neutrophils % 63.6 %; White Blood Count 5.1 K/mcL (4.3-11.1)
[2019-09-30 05:35] LABS: Platelet Count 79 K/mcL (140-400)
[2019-09-30] MEDS: GuaiFENesin Liq 200 MG/10 ML UDC PO SCH ×2 (05:45→11:42)
[2019-09-30] MEDS: Famotidine 20 MG TABLET PO SCH (07:33)
[2019-09-30] MEDS: Aspirin 81 MG TAB.CHEW PO SCH (07:33)
[2019-09-30] MEDS: valACYclovir 500 MG TABLET PO SCH (07:34)
[2019-09-30] MEDS: D5% in Lactated Ringers 1,000 ML IVC SCH (07:34)
[2019-09-30 13:10] VITALS: BP 119/91
== END 2019-09-30 15:25 | disposition home or self-care (01) | DRG 566 ==
LOC: 2NENU
PROVIDERS: ADMIT Obstetrics & Gynecology; ATTEND Obstetrics & Gynecology

== ENCOUNTER 2019-10-14 18:04 | Observation (INO) ==
[2019-10-14 20:08] LABS: Candida DNA Not Detected (Not Detect); Gardnerella DNA Not Detected (Not Detect); Trichomonas DNA Not Detected (Not Detect)
== END 2019-10-14 20:30 | disposition home or self-care (01) ==
LOC: 1NENULAB
PROVIDERS: ADMIT Advanced Practice Midwife; ATTEND Advanced Practice Midwife

== ENCOUNTER 2019-10-16 04:43 | Observation (INO) ==
[2019-10-16 05:04] VITALS: BP 131/75
[2019-10-16] MEDS ORDERED: *HR* FentaNYL (PF) 100 MCG/2 ML VIAL IVP ONE (06:27)
[2019-10-16] MEDS ORDERED: hydrOXYzine pamoate 25 MG CAPSULE PO STA (07:15)
[2019-10-16] MEDS ORDERED: Ringers Solution, Lactated 1,000 ML ONE (08:53)
[2019-10-16 09:11] LABS: Bacteria,Urine Few per hpf (None-Few); Bilirubin,Urine Negative (Negative); Blood,Urine Large (Negative); Clarity,Urine Turbid (Clear); Color,Urine Light-Orange (Yellow); Glucose,Urine (UA) Normal (Normal); Ketones,Urine Negative (Negative); Leukocyte Esterase,Urine Moderate (Negative); Mucus,Urine Few per lpf (None-Few); Nitrite,Urine Negative (Negative); Protein,Urine 50 mg/dL (Neg-Trace); RBC,Urine TNTC per hpf (0-3); Squamous Epithelial Cell,Urine Moderate per hpf (None-Few); Urobilinogen,Urine Normal (Normal); WBC,Urine 30-50 per hpf (0-3)
[2019-10-16] MEDS ORDERED: Ringers Solution, Lactated 1,000 ML IVC SCH (09:15)
[2019-10-16] MEDS: Ringers Solution, Lactated 1,000 ML IVC ONE ×2 (09:20→10:06)
[2019-10-16] MEDS ORDERED: cefTRIAXone 2,000 MG in 0.9 % Sodium Chloride Mini Bag 100 ML IVPB ONE ×2 (13:41→15:00)
[2019-10-16] MEDS ORDERED: Acetaminophen 325 MG TABLET PO ONE (14:34)
== END 2019-10-16 15:50 | disposition home or self-care (01) ==
LOC: 1NENULAB
PROVIDERS: ADMIT Registered Nurse; ATTEND Registered Nurse

== ENCOUNTER 2019-10-24 20:07 | Inpatient (IN) ==
[2019-10-24] MEDS ORDERED: miSOPROStoL 25 MCG TABLET PO PRN (20:11)
[2019-10-24] MEDS ORDERED: Famotidine 20 MG/2 ML VIAL IVP PRN (20:11)
[2019-10-24] MEDS ORDERED: Ondansetron 4 MG/2 ML VIAL IVP PRN ×2 (20:11→22:19)
[2019-10-24] MEDS ORDERED: *HR* FentaNYL (PF) 100 MCG/2 ML VIAL IVP PRN (20:11)
[2019-10-24] MEDS ORDERED: Naloxone 0.4 MG/ML INJ IVP PRN ×2 (20:11→22:19)
[2019-10-24] MEDS ORDERED: Lidocaine 1% 20 ML MDV INFILT PRN (20:11)
[2019-10-24] MEDS ORDERED: Metoclopramide 10 MG/2 ML VIAL IVP PRN (20:11)
[2019-10-24] MEDS ORDERED: Ringers Solution, Lactated 1,000 ML IVC SCH (20:15)
[2019-10-24 21:07] LABS: Basophils % 0.1 %; Eosinophils # 0.1 K/mcL (0.0-0.6); Eosinophils % 1.2 %; Hematocrit 34.4 % (35.3-44.9); Hemoglobin 11.1 g/dL (11.5-15.4); Immature Granulocytes % 0.7 % (0-4); Lymphocytes # 1.2 K/mcL (0.6-4.6); Lymphocytes % 17.7 %; Mean Corpuscular HGB Conc 32.3 g/dL (31.6-35.5); Mean Corpuscular Hemoglobin 29.1 pg (28.0-33.3); Mean Corpuscular Volume 90.1 fL (83.0-100.0); Mean Platelet Volume 10.1 fL (9.4-12.4); Monocytes # 0.4 K/mcL (0.0-1.3); Monocytes % 6.5 %; Platelet Count 123 K/mcL (140-400); Red Blood Count 3.82 M/mcL (3.82-4.97); Red Cell Distribution Width 14.2 % (11.5-14.5); Segmented Neutrophils % 73.8 %; White Blood Count 6.7 K/mcL (4.3-11.1)
[2019-10-24] MEDS ORDERED: EPHEDrine 50 MG/ML VIAL IVP PRN (22:19)
[2019-10-24] MEDS ORDERED: Ropivacaine/PF 0.2% 20 ML VIAL EP ONE (22:19)
[2019-10-24 22:33] LABS: Amphetamine Screen,Urine Negative ng/mL (Cutoff=1000); Barbiturate Screen,Urine Negative ng/mL (Cutoff=200); Benzodiazepines Screen,Urine Negative ng/mL (Cutoff=200); Cannabinoid Screen,Urine Positive ng/mL (Cutoff = 50); Cocaine Screen,Urine Negative ng/mL (Cutoff= 300); Opiate Screen,Urine Negative ng/mL (Cutoff=300); Phencyclidine Screen,Urine Negative ng/mL (Cutoff=25)
[2019-10-25] MEDS ORDERED: Oxytocin 20 units/ LR 1000 mL 20 UNIT/1,000 ML BAG IVC SCH (02:45)
[2019-10-25] MEDS ORDERED: Acetaminophen/Butalbital/CaffeineTABLET PO PRN (03:03)
[2019-10-25] MEDS ORDERED: *HR* Promethazine 25 MG/ML VIAL IVP PRN (06:04)
[2019-10-25] MEDS: Epidural Premix (fent/bupiv) 110 ML EP SCH ×3 (08:12→19:09)
[2019-10-25] MEDS ORDERED: D5% in Lactated Ringers 1,000 ML IVC SCH (19:15)
[2019-10-26] MEDS ORDERED: Measles/Mumps/Rubella Vacc 0.5 ML VIAL SQ PRN (00:06)
[2019-10-26] MEDS ORDERED: Lanolin 7 G OINT...G. TP PRN ×2 (00:06→00:19)
[2019-10-26] MEDS ORDERED: Acetaminophen 325 MG TABLET PO PRN (00:06)
[2019-10-26] MEDS ORDERED: Benzocaine/Menthol 56 GM AEROSOL SPRAY TP PRN (00:06)
[2019-10-26] MEDS ORDERED: Ibuprofen 600 MG TABLET PO PRN (00:06)
[2019-10-26] MEDS ORDERED: Oxytocin 20 units/ LR 1000 mL 20 UNIT/1,000 ML BAG IVC SCH (00:06)
[2019-10-26] MEDS ORDERED: Rho Immune Globulin 1,500 UNIT SYRINGE IM PRN (00:06)
[2019-10-26] MEDS: *HR* HYDROcodone/Acet 5/325 mg TABLET PO PRN ×3 (00:36→20:20)
[2019-10-26] MEDS ORDERED: Ondansetron 4 MG/2 ML VIAL IVP PRN (04:01)
[2019-10-26] MEDS ORDERED: Ondansetron 4 MG/2 ML VIAL IVP SCH (06:00)
[2019-10-26] MEDS ORDERED: Prenatal Vit/FA 1 EACH TABLET PO SCH (09:00)
[2019-10-26] MEDS ORDERED: Ibuprofen 600 MG TABLET PO SCH (10:00)
[2019-10-26 20:37] VITALS: BP 120/80
== END 2019-10-26 22:40 | disposition home or self-care (01) | DRG 560 ==
LOC: 1NENULAB 20:07 → 1NENUOBS 10-26 01:47
PROVIDERS: ADMIT Advanced Practice Midwife; ATTEND Advanced Practice Midwife